=== PATIENT | female | born 1970 | race Caucasian/White ===

== ENCOUNTER 2017-11-21 16:21 | Emergency (ER) | payer BC, OTHER ==
[2017-11-21] MEDS ORDERED: Sodium Chloride 0.9% 10 ML Syringe FLUSH PRN (16:26)
[2017-11-21] MEDS ORDERED: Aspirin 81 MG Tab.Chew PO ONE (16:26)
[2017-11-21] MEDS ORDERED: Sodium Chloride 0.9% 2.5 ML Syringe FLUSH PRN (16:26)
[2017-11-21] MEDS ORDERED: Nitroglycerin 0.4 MG Tab.SL SL PRN (16:26)
--- NOTE | 2017-11-21 16:37 | EDM.PDOC ---
ED HPI GENERAL MEDICAL PROBLEM - General Chief Complaint: General Stated Complaint: CHEST PAIN Time Seen by Provider: 11/21/17 16:25 Source of Information: Reports: Patient History Limitations: Reports: No Limitations - History of Present Illness INITIAL COMMENTS - FREE TEXT/NARRATIVE: History of present illness: []Patient had an episode of chest pain 4 days ago at approximately 6 PM about 2 minutes that she described as chest heaviness that radiated to both arms followed by a flushed feeling and headache. All her symptoms were resolved within a few minutes. Patient has had 4 or 5 current episodes of the same symptoms. Her last episode was 10 PM last night. She called her primary care doctor who told her to come into the ER to be checked out. She usually has low blood pressure and she arrives with a blood pressure 148/70 which she states is very high for her. She denies any weakness in her extremities, difficulty speaking or memory loss. She does not have a history of heart disease. Patient does have HIV and she is on Genvoya. Review of systems: As per history of present illness and below otherwise all systems reviewed and negative. Past medical history: As per history of present illness and as reviewed below otherwise noncontributory. Surgical history: As per history of present illness and as reviewed below otherwise noncontributory. Social history: No reported history of drug or alcohol abuse. Family history: As per history of present illness and as reviewed below otherwise noncontributory. Physical exam: General: Well developed, well nourished in NAD HEENT: Atraumatic, normocephalic, pupils reactive, negative for conjunctival pallor or scleral icterus, mucous membranes moist, throat clear, neck supple, nontender, trachea midline. Lungs: Clear to auscultation, breath sounds equal bilaterally, chest nontender. Heart: S1S2, regular, negative for clicks, rubs, or JVD. Abdomen: Soft, nondistended, nontender. Negative for masses or hepatosplenomegaly. Negative for costovertebral tenderness. Pelvis: Stable nontender. Genitourinary: Deferred. Rectal: Deferred. Extremities: Atraumatic, negative for cords or calf pain. Neurovascular unremarkable. Neuro: Awake, alert, oriented. Cranial nerves II through XII unremarkable. Cerebellum unremarkable. Motor and sensory unremarkable throughout. Exam nonfocal. Diagnostics: []CBC normal, chemistry normal, EKG sinus rhythm at 72 without acute ischemia, chest x-ray negative, troponin negative Therapeutics: []Aspirin and nitroglycerin given for her blood pressure. Impression: []Chest pain Plan: []Follow-up with primary care for further workup. Definitive disposition and diagnosis as appropriate pending reevaluation and review of above. headache Pain Score (Numeric/FACES): 5 - Related Data Allergies Allergy/AdvReac Type Severity Reaction Status Date / Time cefdinir Allergy Rash Verified 11/21/17 16:25 erythromycin base Allergy Vomiting Verified 11/21/17 16:25 tetracycline Allergy Vomiting Verified 11/21/17 16:25 Home Meds: Home Meds Albuterol [Ventolin HFA] 18 gm INH DAILY 11/27/14 [History] Multivitamin with Minerals [Multiple Vitamin] 1 tab PO DAILY 11/27/14 [History] Elvitegr/Cobicist/Emtric/Tenof [Stribild Tablet] 1 tab PO DAILY 11/21/17 [ History] Social & Family History - Tobacco Use Smoking Status *Q: Current Every Day Smoker Years of Tobacco use: 20 Used Tobacco, but Quit: No Second Hand Smoke Exposure: No - Alcohol Use Days Per Week of Alcohol Use: 1 Number of Drinks Per Day: 2 Total Drinks Per Week: 2 - Recreational Drug Use Recreational Drug Use: No ED ROS GENERAL - Review of Systems Review Of Systems: See Below ED EXAM, GENERAL - Physical Exam Exam: See Below (See history of present illness) Course - Vital Signs Last Recorded V/S: Last Vital Signs Temp 98.5 F 11/21/17 16:26 Pulse 87 11/21/17 17:56 Resp 18 11/21/17 17:56 BP 111/69 11/21/17 17:56 Pulse Ox 97 11/21/17 17:56 - Orders/Labs/Meds Orders: Active Orders 24 hr Category Date Time Status EKG Documentation Completion [RC] STAT Care 11/21/17 16:26 Active Chest 1V Frontal [CR] Stat Exams 11/21/17 16:26 Taken Nitroglycerin [Nitrostat] Med 11/21/17 16:26 Active 0.4 mg SL Q5M PRN Sodium Chloride 0.9% [Saline Flush] Med 11/21/17 16:26 Active 10 ml FLUSH ASDIRECTED PRN Sodium Chloride 0.9% [Saline Flush] Med 11/21/17 16:26 Active 2.5 ml FLUSH ASDIRECTED PRN Saline Lock Insert [OM.PC] Stat Oth 11/21/17 16:26 Ordered Medication Orders Nitroglycerin (Nitrostat) 0.4 mg SL Q5M PRN PRN Reason: Chest Pain Last Admin: 11/21/17 16:45 Dose: 0.4 mg Sodium Chloride (Saline Flush) 10 ml FLUSH ASDIRECTED PRN PRN Reason: Keep Vein Open Sodium Chloride (Saline Flush) 2.5 ml FLUSH ASDIRECTED PRN PRN Reason: Keep Vein Open Labs: Laboratory Tests 11/21/17 11/21/17 11/21/17 Range/Units 16:40 16:40 16:40 WBC 7.24 (4.0-11.0) K/uL RBC 4.44 (4.30-5.90) M/uL Hgb 13.6 (12.0-16.0) g/dL Hct 40.3 (36.0-46.0) % MCV 90.8 (80.0-98.0) fL MCH 30.6 (27.0-32.0) pg MCHC 33.7 (31.0-37.0) g/dL RDW Std Deviation 45.1 (28.0-62.0) fl RDW Coeff of Lynn 14 (11.0-15.0) % Plt Count 210 (150-400) K/uL MPV 9.70 (7.40-12.00) fL Neut % (Auto) 64.3 (48.0-80.0) % Lymph % (Auto) 26.5 (16.0-40.0) % [place] % (Auto) 6.4 (0.0-15.0) % Eos % (Auto) 2.5 (0.0-7.0) % Baso % (Auto) 0.3 (0.0-1.5) % Neut # (Auto) 4.7 (1.4-5.7) K/uL Lymph # (Auto) 1.9 (0.6-2.4) K/uL [place] # (Auto) 0.5 (0.0-0.8) K/uL Eos # (Auto) 0.2 (0.0-0.7) K/uL Baso # (Auto) 0.0 (0.0-0.1) K/uL Nucleated RBC % 0.0 /100WBC Nucleated RBCs # 0 K/uL Lactate 1.6 (0.20-2.00) mmol/L Sodium 140 (136-145) mmol/L Potassium 3.5 (3.5-5.1) mmol/L Chloride 103 (98-107) mmol/L Carbon Dioxide 26.3 (21.0-32.0) mmol/L BUN 22 H (7.0-18.0) mg/dL Creatinine 1.0 (0.6-1.0) mg/dL Est Cr Clr Drug Dosing 69.40 mL/min Estimated GFR (MDRD) 59.2 ml/min Glucose 94 (74-106) mg/dL Calcium 9.7 (8.5-10.1) mg/dL Total Bilirubin 0.2 (0.2-1.0) mg/dL AST 23 (15-37) IU/L ALT 37 (14-63) IU/L Alkaline Phosphatase 97 (46-116) U/L Troponin I < 0.050 (0.000-0.056) ng/mL Total Protein 7.8 (6.4-8.2) g/dL Albumin 4.0 (3.4-5.0) g/dL Globulin 3.8 H (2.0-3.5) g/dL Albumin/Globulin Ratio 1.1 L (1.3-2.8) Meds: Medications Generic Name Dose Route Start Last Admin Trade Name Freq PRN Reason Stop Dose Admin Nitroglycerin 0.4 mg 11/21/17 16:26 11/21/17 16:45 Nitrostat SL 0.4 mg Q5M PRN Administration Chest Pain Sodium Chloride 10 ml 11/21/17 16:26 Saline Flush FLUSH ASDIRECTED PRN Keep Vein Open Sodium Chloride 2.5 ml 11/21/17 16:26 Saline Flush FLUSH ASDIRECTED PRN Keep Vein Open Discontinued Medications Generic Name Dose Route Start Last Admin Trade Name Freq PRN Reason Stop Dose Admin Aspirin 324 mg 11/21/17 16:26 11/21/17 16:54 Aspirin PO 11/21/17 16:27 324 mg ONETIME ONE Administration Departure - Departure Time of Disposition: 17:58 Disposition: Home, Self-Care 01 Condition: Good Clinical Impression: Chest pain Qualifiers: Chest pain type: unspecified Qualified Code(s): R07.9 - Chest pain, unspecified - Discharge Information Referrals: PCP,None [Primary Care Provider] - Forms: ED Department Discharge Additional Instructions: The following information is given to patients seen in the emergency department who are being discharged to home. This information is to outline your options for follow-up care. We provide all patients seen in our emergency department with a follow-up referral. The need for follow-up, as well as the timing and circumstances, are variable depending upon the specifics of your emergency department visit. If you don't have a primary care physician on staff, we will provide you with a referral. We always advise you to contact your personal physician following an emergency department visit to inform them of the circumstance of the visit and for follow-up with them and/or the need for any referrals to a consulting specialist. The emergency department will also refer you to a specialist when appropriate. This referral assures that you have the opportunity for follow-up care with a specialist. All of these measure are taken in an effort to provide you with optimal care, which includes your follow-up. Under all circumstances we always encourage you to contact your private physician who remains a resource for coordinating your care. When calling for follow-up care, please make the office aware that this follow-up is from your recent emergency room visit. If for any reason you are refused follow-up, please contact the [facility] Emergency Department at and asked to speak to the emergency department charge nurse. [facility] [address] [place] [id number] - My Orders Last 24 Hours: My Active Orders 11/21/17 16:26 EKG Documentation Completion [RC] STAT Chest 1V Frontal [CR] Stat Nitroglycerin [Nitrostat] 0.4 mg SL Q5M PRN Sodium Chloride 0.9% [Saline Flush] 10 ml FLUSH ASDIRECTED PRN Sodium Chloride 0.9% [Saline Flush] 2.5 ml FLUSH ASDIRECTED PRN Saline Lock Insert [OM.PC] Stat - Assessment/Plan Last 24 Hours: My Active Orders 11/21/17 16:26 EKG Documentation Completion [RC] STAT Chest 1V Frontal [CR] Stat Nitroglycerin [Nitrostat] 0.4 mg SL Q5M PRN Sodium Chloride 0.9% [Saline Flush] 10 ml FLUSH ASDIRECTED PRN Sodium Chloride 0.9% [Saline Flush] 2.5 ml FLUSH ASDIRECTED PRN Saline Lock Insert [OM.PC] Stat
[2017-11-21 17:31] LABS: CHLORIDE,CL 103 mmol/L (98-107); SODIUM,NA 140 mmol/L (136-145)
[2017-11-21 18:15] VITALS: BP 112/73
--- NOTE | 2017-11-22 10:09 | CR ---
EXAM DATE: 11/21/17 PATIENT'S AGE: 46 Patient: FARAZ BAKER Facility: [place], [place] Site . Site : [id number] Study: XRay Chest [id number]/12/2018 5:55:23 PM Ordering Physician: Doctor Driscoll Final Report: INDICATION: chest pain, paula arm pain/heaviness COMPARISON: November, Single AP view Findings: The lungs are clear. Pulmonary vascularity, mediastinum and cardiac silhouette are within normal limits. No effusions and no pneumothorax. Osseous structures appear unremarkable. Impression: No evidence of acute cardiopulmonary disease. Dictated by: Librado Hewitt MD @ 11/21/2017 18:09:55 (Electronic Signature) Report Signed by Proxy. SCAR
== END 2017-11-21 18:11 | disposition home or self-care (01) ==
LOC: MW.ED 16:21
DX: R07.89 Other chest pain (principal); F17.210 Nicotine dependence, cigarettes, uncomplicated; Z88.1 Allergy status to other antibiotic agents
CPT/HCPCS: 36415; 71045; 80053; 83605; 84484; 85025; 99285; A9270; 99284

== ENCOUNTER 2019-06-16 12:13 | Emergency (ER) | payer BC, OTHER ==
--- NOTE | 2019-06-16 12:15 | EDM.PDOC ---
ED HPI GENERAL MEDICAL PROBLEM - General Stated Complaint: check blood sugar Time Seen by Provider: 06/16/19 12:14 Source of Information: Reports: Patient History Limitations: Reports: No Limitations - History of Present Illness INITIAL COMMENTS - FREE TEXT/NARRATIVE: HISTORY AND PHYSICAL: History of present illness: Patient is a 48-year-old female presenting to the emergency room for irregular heartbeat and dizziness. Patient states while at work this morning at around 10 AM her "heart went crazy . . . and was all over the place". She also felt nauseous, SOB, had aching left shoulder pain, tight chest, tingling in fingers, arms, and hands, and a headache rated at a 4 out of 10 starting "at the back of my head and radiated to the top". She notified us that she started to monitor her pulse and it would be "fast/strong and then couldn't feel it". Patient states she currently has a "tight chest", headache, dizziness, minor tingling still in hands and fingers, and mild shoulder pain. Patient denies any fever, chills, change in vision, syncope or near syncope. Denies any chest pain, back pain, shortness of breath currently or cough. Denies any abdominal pain, vomiting, diarrhea, constipation or dysuria. Has not noted any blood in urine or stool. Patient has been eating and drinking appropriately. Review of systems: As per history of present illness and below otherwise all systems reviewed and negative. Past medical history: As per history of present illness and as reviewed below otherwise noncontributory. Surgical history: As per history of present illness and as reviewed below otherwise noncontributory. Social history: See social history for further information Family history: As per history of present illness and as reviewed below otherwise noncontributory. Physical exam: General: She is a well-nourished and well-developed 48-year-old female. Alert and orientated. Nontoxic in appearance and in no acute distress. HEENT: Atraumatic, normocephalic, pupils equal and reactive bilaterally, negative for conjunctival pallor or scleral icterus, mucous membranes moist, TMs normal bilaterally, throat clear, neck supple, nontender, trachea midline. No drooling or trismus noted. No meningeal signs. No hot potato voice noted. Lungs: Clear to auscultation, breath sounds equal bilaterally, chest nontender. Heart: S1S2, regular rate and rhythm without overt murmur Abdomen: Soft, nondistended, nontender. Negative for masses or hepatosplenomegaly. Negative for costovertebral tenderness. Skin: Intact, warm, dry. No lesions or rashes noted. Extremities: Atraumatic, moves all extremities per self without difficulty or deficits, negative for cords or calf pain. Neurovascular unremarkable. Neuro: Awake, alert, oriented. Cranial nerves II through XII unremarkable. Cerebellum unremarkable. Motor and sensory unremarkable throughout. Exam nonfocal. Notes: Patient was offered IV fluids at the time of physical examination and she declined an IV. Imagining is unremarkable. Lab work is unremarkable. I did offer the patient admission to further evaluate the cardiac complaining and follow her troponins. She declines. She denies having any chest pain just the sensation of palpitations. She states she does not want any form of IV normal to stay in the hospital. We discussed signs and symptoms that would prompt her to return to the emergency room. Supportive care measures were reviewed and discussed. Voices understanding and is agreeable to plan of care. Denies any further questions or concerns at this time. Diagnostics: CBC, CMP, troponin, CT, EKG Therapeutics: Aspirin Prescription: None Impression: Palpitations Dizziness Plan: 1. Aspirin 81mg once daily 2. Follow up with primary care provider for further evaluation and management 3. Return to the ED as needed and as discussed. Definitive disposition and diagnosis as appropriate pending reevaluation and review of above. - Related Data Allergies Allergy/AdvReac Type Severity Reaction Status Date / Time cefdinir Allergy Rash Verified 07/28/18 22:03 erythromycin base Allergy Vomiting Verified 07/28/18 22:03 Sulfa (Sulfonamide Allergy Other Verified 06/16/19 12:19 Antibiotics) tetracycline Allergy Vomiting Verified 07/28/18 22:03 Home Meds: Home Meds Albuterol [Ventolin HFA] 18 gm INH DAILY 11/27/14 [History] Multivitamin with Minerals [Multiple Vitamin] 1 tab PO DAILY 11/27/14 [History] Past Medical History HEENT History: Reports: None Cardiovascular History: Reports: None Respiratory History: Reports: None, Pneumonia, Recurrent Gastrointestinal History: Reports: None Genitourinary History: Reports: None TAPE LIBRARIAN History: Reports: None Musculoskeletal History: Reports: None Neurological History: Reports: None Psychiatric History: Reports: None Endocrine/Metabolic History: Reports: None Hematologic History: Reports: None Immunologic History: Reports: HIV Oncologic (Cancer) History: Reports: None Dermatologic History: Reports: None - Infectious Disease History Infectious Disease History: Reports: HIV-Human Immunodeficiency Virus - Past Surgical History Head Surgeries/Procedures: Reports: None HEENT Surgical History: Reports: None Cardiovascular Surgical History: Reports: None Respiratory Surgical History: Reports: None GI Surgical History: Reports: Appendectomy Female Surgical History: Reports: Cystectomy, Oophorectomy Endocrine Surgical History: Reports: None Neurological Surgical History: Reports: None Musculoskeletal Surgical History: Reports: None Oncologic Surgical History: Reports: None Dermatological Surgical History: Reports: None Social & Family History - Family History Family Medical History: Noncontributory - Caffeine Use Caffeine Use: Reports: Coffee ED ROS GENERAL - Review of Systems Review Of Systems: ROS reveals no pertinent complaints other than HPI. ED EXAM, GENERAL - Physical Exam Exam: See Below (See dictation) Course - Vital Signs Last Recorded V/S: Last Vital Signs Temp 96.9 F 06/16/19 12:16 Pulse 75 06/16/19 12:16 Resp 18 06/16/19 12:16 BP 130/82 06/16/19 12:16 Pulse Ox 96 06/16/19 12:16 - Orders/Labs/Meds Orders: Active Orders 24 hr Category Date Time Status EKG Documentation Completion [RC] STAT Care 06/16/19 12:20 Active Labs: Laboratory Tests 06/16/19 06/16/19 06/16/19 Range/Units 12:45 13:51 13:51 WBC 7.39 (4.0-11.0) K/uL RBC 4.24 L (4.30-5.90) M/uL Hgb 12.6 (12.0-16.0) g/dL Hct 38.6 (36.0-46.0) % MCV 91.0 (80.0-98.0) fL MCH 29.7 (27.0-32.0) pg MCHC 32.6 (31.0-37.0) g/dL RDW Std Deviation 44.9 (28.0-62.0) fl RDW Coeff of [place] 14 (11.0-15.0) % Plt Count 227 (150-400) K/uL MPV 9.80 (7.40-12.00) fL Neut % (Auto) 63.2 (48.0-80.0) % Lymph % (Auto) 28.3 (16.0-40.0) % [place] % (Auto) 6.2 (0.0-15.0) % Eos % (Auto) 2.0 (0.0-7.0) % Baso % (Auto) 0.3 (0.0-1.5) % Neut # (Auto) 4.7 (1.4-5.7) K/uL Lymph # (Auto) 2.1 (0.6-2.4) K/uL [place] # (Auto) 0.5 (0.0-0.8) K/uL Eos # (Auto) 0.2 (0.0-0.7) K/uL Baso # (Auto) 0.0 (0.0-0.1) K/uL Nucleated RBC % 0.0 /100WBC Nucleated RBCs # 0 K/uL Sodium 142 (136-145) mmol/L Potassium 3.7 (3.5-5.1) mmol/L Chloride 105 (98-107) mmol/L Carbon Dioxide 29.2 (21.0-32.0) mmol/L BUN 15 (7.0-18.0) mg/dL Creatinine 0.9 (0.6-1.0) mg/dL Est Cr Clr Drug Dosing 70.01 mL/min Estimated GFR (MDRD) > 60.0 ml/min Glucose 83 (74-106) mg/dL Calcium 9.3 (8.5-10.1) mg/dL Total Bilirubin 0.3 (0.2-1.0) mg/dL AST 21 (15-37) IU/L ALT 25 (14-63) IU/L Alkaline Phosphatase 97 (46-116) U/L Troponin I < 0.050 (0.000-0.056) ng/mL Total Protein 7.7 (6.4-8.2) g/dL Albumin 3.9 (3.4-5.0) g/dL Globulin 3.8 (2.6-4.0) g/dL Albumin/Globulin Ratio 1.0 (0.9-1.6) TSH 3rd Generation 0.70 (0.36-3.74) uIU/mL Urine Color YELLOW Urine Appearance CLEAR Urine pH 6.5 (5.0-8.0) Ur Specific [place] 1.010 (1.001-1.035) Urine Protein NEGATIVE (NEGATIVE) mg/dL Urine Glucose (UA) NEGATIVE (NEGATIVE) mg/dL Urine Ketones NEGATIVE (NEGATIVE) mg/dL Urine Occult Blood NEGATIVE (NEGATIVE) Urine Nitrite NEGATIVE (NEGATIVE) Urine Bilirubin NEGATIVE (NEGATIVE) Urine Urobilinogen 0.2 (<2.0) EU/dL Ur Leukocyte Esterase NEGATIVE (NEGATIVE) Meds: Medications Discontinued Medications Generic Name Dose Route Start Last Admin Trade Name Freq PRN Reason Stop Dose Admin Aspirin 324 mg 06/16/19 12:20 06/16/19 12:26 Aspirin PO 06/16/19 12:21 324 mg ONETIME ONE Administration Departure - Departure Time of Disposition: 14:31 Disposition: Home, Self-Care 01 Clinical Impression: Palpitations, Dizziness - Discharge Information Referrals: PCP,None [Primary Care Provider] - Additional Instructions: The following information is given to patients seen in the emergency department who are being discharged to home. This information is to outline your options for follow-up care. We provide all patients seen in our emergency department with a follow-up referral. The need for follow-up, as well as the timing and circumstances, are variable depending upon the specifics of your emergency department visit. If you don't have a primary care physician on staff, we will provide you with a referral. We always advise you to contact your personal physician following an emergency department visit to inform them of the circumstance of the visit and for follow-up with them and/or the need for any referrals to a consulting specialist. The emergency department will also refer you to a specialist when appropriate. This referral assures that you have the opportunity for follow-up care with a specialist. All of these measure are taken in an effort to provide you with optimal care, which includes your follow-up. Under all circumstances we always encourage you to contact your private physician who remains a resource for coordinating your care. When calling for follow-up care, please make the office aware that this follow-up is from your recent emergency room visit. If for any reason you are refused follow-up, please contact the [facility] Emergency Department at and asked to speak to the emergency department charge nurse. [facility] [address] [place] [address] [facility] [address] [place] [phone] 1. Aspirin 81mg once daily 2. Follow up with primary care provider for further evaluation and management 3. Return to the ED as needed and as discussed. - My Orders Last 24 Hours: My Active Orders 06/16/19 12:20 EKG Documentation Completion [RC] STAT - Assessment/Plan Last 24 Hours: My Active Orders 06/16/19 12:20 EKG Documentation Completion [RC] STAT
[2019-06-16] MEDS ORDERED: Aspirin 81 MG Tab.Chew PO ONE (12:20)
--- NOTE | 2019-06-16 13:01 | CR ---
Indication: Chest pain. Technique: Single AP portable view of the chest was obtained. Comparison: November 21, 2017. Findings: The heart is normal in size. The lungs are clear. No infiltrate, pleural effusion, or pneumothorax is identified. Impression: No acute cardiopulmonary process. Dictated by Eve Rose MD @ Jun 16 2019 12:59PM Signed by Dr. Eve Rose @ Jun 16 2019 1:00PM
--- NOTE | 2019-06-16 13:43 | CT ---
INDICATION: 48 year-old female. "Pressure in the head ". COMPARISON: None. TECHNIQUE: A CT volumetric acquisition was performed of the brain without IV contrast. FINDINGS: The CT images reveal a normal appearance of the cerebral ventricles and basal cisterns. There is no evidence of intracranial hemorrhage, tissue infarction or mass effect. The mastoid air cells and middle ear cavities are clear. The calvarium appears intact. There is normal aeration of the visualized paranasal sinuses. IMPRESSION: Negative head CT. Please note that all CT scans at this facility use dose modulation, iterative reconstruction, and/or weight-based dosing when appropriate to reduce radiation dose to as low as reasonably achievable. Dictated by Kunal Armijo MD @ Jun 16 2019 1:39PM Signed by Dr. Kunal Armijo @ Jun 16 2019 1:40PM
[2019-06-16 14:24] LABS: BLOOD UREA NITROGEN,BUN 15 mg/dL (7.0-18.0); CARBON DIOXIDE,CO2 29.2 mmol/L (21.0-32.0); CHLORIDE,CL 105 mmol/L (98-107); GLUCOSE RANDOM 83 mg/dL (74-106); POTASSIUM,K 3.7 mmol/L (3.5-5.1); SODIUM,NA 142 mmol/L (136-145)
[2019-06-16 16:34] VITALS: BP 128/74; PULSE 64
== END 2019-06-16 14:36 | disposition home or self-care (01) ==
LOC: MW.ED 12:13
DX: R00.2 Palpitations (principal); R42 Dizziness and giddiness; Z21 Asymptomatic human immunodeficiency virus [HIV] infection status; Z88.1 Allergy status to other antibiotic agents; Z88.2 Allergy status to sulfonamides
CPT/HCPCS: 36415; 70450; 71045; 80053; 81003; 84443; 84484; 85025; 93005; 99284; A9270; 99283

== ENCOUNTER 2020-12-31 01:28 | Emergency (ER) | payer BC, OTHER ==
[2020-12-31] MEDS ORDERED: Sodium Chloride 0.9% 2.5 ML Syringe FLUSH PRN (01:53)
[2020-12-31] MEDS ORDERED: Sodium Chloride 0.9% 10 ML Syringe FLUSH PRN (01:53)
[2020-12-31] MEDS ORDERED: Ondansetron 4 MG/2 ML SDV IVPUSH ONE (01:54)
[2020-12-31] MEDS ORDERED: fentaNYL 50 MCG/ML SDV IVPUSH ONE (01:54)
--- NOTE | 2020-12-31 01:57 | EDM.PDOC ---
ED HPI GENERAL MEDICAL PROBLEM - General Chief Complaint: Abdominal Pain Stated Complaint: STOMACH PAIN Time Seen by Provider: 12/31/20 01:45 - History of Present Illness INITIAL COMMENTS - FREE TEXT/NARRATIVE: History of present illness: Patient has pain in her right upper quadrant and epigastrium. It radiates to her anterior chest and radiates to her lower anterior abdomen. Pain started about 2 hours ago after she had gotten up to get ready to go to bed. She had some discomfort before that. In fact she has been having some body aches for a month. She is under a lot of stress. The patient is a smoker. She drove to [place] and back returning 1 week ago. She has no history of blood clots but a family history of her father having multiple blood clots in the legs. No exogenous hormones. Pain hurts worse when she moves and hurts worse when she breathes. She had a relatively heavy meal vegetables before she went to bed tonight. [] Review of systems: As per history of present illness and below otherwise all systems reviewed and negative. Past medical history: As per history of present illness and as reviewed below otherwise noncontributory. Surgical history: As per history of present illness and as reviewed below otherwise noncontributory. Social history: No reported history of drug or alcohol abuse. Family history: As per history of present illness and as reviewed below otherwise noncont ributory. Physical exam: Constitutional - well developed, well-nourished and in no acute distress HEENT - normocephalic, no evidence of trauma - external nose and mouth normal - no mass in neck and no JVD - mucosae moist EYES - full EOM, PERRL, no icterus - no evidence of inflammation, injection, or drainage Respiratory - no respiratory distress, equal bilateral expansion, lungs clear to auscultation and no abnormal lung sounds Cardiovascular - Regular Rhythm with S1 and S2 appreciated and no murmur, gallop or rub. GI -been tender in the epigastrium and somewhat so in the right upper quadrant. Abdomen soft without distension or organomegaly - normal bowel sounds - no guard or rebound Musculoskeletal no gross deformity of long bones or joints - no tenderness, swelling or edema Neurologic - Alert and oriented times four - CN II-XII grossly intact - motor sensory and coordination symmetrically normal Psychiatric - appropriate mood and affect with normal thought content Hematologic - No petechiae or purpura - mucosa appropriate color and sclera not pale - normal nail bed color and refill Integument - no rash or evidence of trauma - normal turgor Diagnostics: [] Therapeutics: [] Impression: [] Plan: [] Definitive disposition and diagnosis as appropriate pending reevaluation and review of above. abd pain Pain Score (Numeric/FACES): 6 - Related Data Allergies Allergy/AdvReac Type Severity Reaction Status Date / Time cefdinir Allergy Rash Verified 12/31/20 01:40 erythromycin base Allergy Vomiting Verified 12/31/20 01:40 Sulfa (Sulfonamide Allergy Other Verified 12/31/20 01:40 Antibiotics) tetracycline Allergy Vomiting Verified 12/31/20 01:40 Home Meds: Home Meds Albuterol [Ventolin HFA] 18 gm INH DAILY 11/27/14 [History] Multivitamin with Minerals [Multiple Vitamin] 1 tab PO DAILY 11/27/14 [History] Ondansetron [Zofran ODT] 4 mg PO Q6H PRN #10 tab.dis 12/31/20 [Rx] Past Medical History HEENT History: Reports: None Cardiovascular History: Reports: None Respiratory History: Reports: None, Pneumonia, Recurrent Gastrointestinal History: Reports: None Genitourinary History: Reports: None [employer] History: Reports: None Musculoskeletal History: Reports: None Neurological History: Reports: None Psychiatric History: Reports: None Endocrine/Metabolic History: Reports: None Hematologic History: Reports: None Immunologic History: Reports: HIV Oncologic (Cancer) History: Reports: None Dermatologic History: Reports: None - Infectious Disease History Infectious Disease History: Reports: HIV-Human Immunodeficiency Virus - Past Surgical History Head Surgeries/Procedures: Reports: None HEENT Surgical History: Reports: None Cardiovascular Surgical History: Reports: None Respiratory Surgical History: Reports: None GI Surgical History: Reports: Appendectomy Female Surgical History: Reports: Cystectomy, Oophorectomy Endocrine Surgical History: Reports: None Neurological Surgical History: Reports: None Musculoskeletal Surgical History: Reports: None Oncologic Surgical History: Reports: None Dermatological Surgical History: Reports: None Social & Family History - Family History Family Medical History: No Pertinent Family History - Caffeine Use Caffeine Use: Reports: Coffee ED ROS GENERAL - Review of Systems Review Of Systems: Comprehensive ROS is negative, except as noted in HPI. ED EXAM, GENERAL - Physical Exam Exam: See Below Free Text/Narrative:: My physical exam is in the HPI #1 Interpretation EKG Interpretation Comments: EKG sinus rhythm heart rate 75 HI 173 QT duration 417 QRS axis 37 QRS within normal limits when compared to 06/16/2019 no significant change impression no acute injury Course - Vital Signs Text/Narrative:: 3:55 AM patient improved Last Recorded V/S: Last Vital Signs Temp 36.4 C 12/31/20 01:40 Pulse 70 12/31/20 03:32 Resp 18 12/31/20 03:32 BP 106/56 L 12/31/20 03:32 Pulse Ox 96 12/31/20 03:32 - Orders/Labs/Meds Orders: Active Orders 24 hr Category Date Time Status EKG Documentation Completion [RC] AM Care 12/31/20 01:53 Active UA W/ARMANDO RFLX IF INDICATED [URIN] Stat Lab 12/31/20 01:53 Ordered Sodium Chloride 0.9% [Saline Flush] Med 12/31/20 01:53 Active 10 ml FLUSH ASDIRECTED PRN Sodium Chloride 0.9% [Saline Flush] Med 12/31/20 01:53 Active 2.5 ml FLUSH ASDIRECTED PRN Saline Lock Insert [OM.PC] Stat Oth 12/31/20 01:53 Ordered Medication Orders Sodium Chloride (Sodium Chloride 0.9% 10 Ml Syringe) 10 ml FLUSH ASDIRECTED PRN PRN Reason: Keep Vein Open Last Admin: 12/31/20 02:19 Dose: 10 ml Documented by: [id number] Sodium Chloride (Sodium Chloride 0.9% 2.5 Ml Syringe) 2.5 ml FLUSH ASDIRECTED PRN PRN Reason: Keep Vein Open Last Admin: 12/31/20 02:19 Dose: 2.5 ml Documented by: [id number] Labs: Laboratory Tests 12/31/20 12/31/20 12/31/20 Range/Units 02:11 02:11 02:11 WBC 8.84 (4.0-11.0) K/uL RBC 4.10 L (4.30-5.90) M/uL Hgb 12.5 (12.0-16.0) g/dL Hct 37.3 (36.0-46.0) % MCV 91.0 (80.0-98.0) fL MCH 30.5 (27.0-32.0) pg MCHC 33.5 (31.0-37.0) g/dL RDW Std Deviation 43.9 (28.0-62.0) fl RDW Coeff of Lynn 13 (11.0-15.0) % Plt Count 268 (150-400) K/uL MPV 9.80 (7.40-12.00) fL Neut % (Auto) 67.7 (48.0-80.0) % Lymph % (Auto) 24.5 (16.0-40.0) % Wilkinson % (Auto) 4.8 (0.0-15.0) % Eos % (Auto) 2.8 (0.0-7.0) % Baso % (Auto) 0.2 (0.0-1.5) % Neut # (Auto) 6.0 H (1.4-5.7) K/uL Lymph # (Auto) 2.2 (0.6-2.4) K/uL Wilkinson # (Auto) 0.4 (0.0-0.8) K/uL Eos # (Auto) 0.3 (0.0-0.7) K/uL Baso # (Auto) 0.0 (0.0-0.1) K/uL Nucleated RBC % 0.0 /100WBC Nucleated RBCs # 0 K/uL D-Dimer, Quantitative 0.37 (0.0-0.50) mg/L FEU Sodium 139 (136-145) mmol/L Potassium 3.5 (3.5-5.1) mmol/L Chloride 101 (98-107) mmol/L Carbon Dioxide 26.2 (21.0-32.0) mmol/L BUN 24 H (7.0-18.0) mg/dL Creatinine 0.9 (0.6-1.0) mg/dL Est Cr Clr Drug Dosing 68.45 mL/min Estimated GFR (MDRD) > 60.0 ml/min Glucose 120 H (74-106) mg/dL Calcium 9.2 (8.5-10.1) mg/dL Total Bilirubin 0.5 (0.2-1.0) mg/dL AST 20 (15-37) IU/L ALT 33 (14-63) IU/L Alkaline Phosphatase 116 (46-116) U/L Troponin I < 0.050 (0.000-0.056) ng/mL Total Protein 7.3 (6.4-8.2) g/dL Albumin 3.7 (3.4-5.0) g/dL Globulin 3.6 (2.6-4.0) g/dL Albumin/Globulin Ratio 1.0 (0.9-1.6) Lipase 92 (73-393) U/L Meds: Medications Generic Name Dose Route Start Last Admin Trade Name Freq PRN Reason Stop Dose Admin Sodium Chloride 10 ml 12/31/20 01:53 12/31/20 02:19 Sodium Chloride 0.9% 10 Ml Syringe FLUSH 10 ml ASDIRECTED PRN Administration Keep Vein Open Sodium Chloride 2.5 ml 12/31/20 01:53 12/31/20 02:19 Sodium Chloride 0.9% 2.5 Ml Syringe FLUSH 2.5 ml ASDIRECTED PRN Administration Keep Vein Open Discontinued Medications Generic Name Dose Route Start Last Admin Trade Name Freq PRN Reason Stop Dose Admin Al Hydroxide/Mg Hydroxide 15 0 ml 12/31/20 03:02 12/31/20 03:10 ml/ Lidocaine HCl 5 ml PO 12/31/20 03:03 20 each ONETIME ONE Administration Fentanyl 50 mcg 12/31/20 01:54 12/31/20 02:18 Fentanyl 50 Mcg/Ml Sdv IVPUSH 12/31/20 01:55 50 mcg ONETIME ONE Administration Pantoprazole Sodium 40 mg/ 10 mls @ 300 mls/hr 12/31/20 03:02 12/31/20 03:10 Sodium Chloride IV 12/31/20 03:03 300 mls/hr NOW ONE Administration Ondansetron HCl 4 mg 12/31/20 01:54 12/31/20 02:18 Ondansetron 4 Mg/2 Ml Sdv IVPUSH 12/31/20 01:55 4 mg ONETIME ONE Administration Departure - Departure Time of Disposition: 03:55 Disposition: Home, Self-Care 01 Condition: Good Clinical Impression: Gastritis - Discharge Information Prescriptions: Ondansetron [Zofran ODT] 4 mg PO Q6H PRN #10 tab.dis PRN Reason: Nausea Instructions: Gastritis, Adult, [id number] Referrals: Andrey Bustillos MD [Primary Care Provider] - Forms: ED Department Discharge Additional Instructions: Use Protonix or Prilosec [id number]. Carry Tums or Maalox for acute worsening. Follow-up with PMD [facility] [address] [place] [id number] [address] The following information is given to patients seen in the emergency department who are being discharged to home. This information is to outline your options for follow-up care. We provide all patients seen in our emergency department with a follow-up referral. The need for follow-up, as well as the timing and circumstances, are variable depending upon the specifics of your emergency department visit. If you don't have a primary care physician on staff, we will provide you with a referral. We always advise you to contact your personal physician following an emergency department visit to inform them of the circumstance of the visit and for follow-up with them and/or the need for any referrals to a consulting specialist. The emergency department will also refer you to a specialist when appropriate. This referral assures that you have the opportunity for follow-up care with a specialist. All of these measure are taken in an effort to provide you with optimal care, which includes your follow-up. Under all circumstances we always encourage you to contact your private physician who remains a resource for coordinating your care. When calling for follow-up care, please make the office aware that this follow-up is from your recent emergency room visit. If for any reason you are refused follow-up, please contact the [facility] Emergency Department at and asked to speak to the emergency department charge nurse. Sepsis Event Note (ED) - Evaluation Sepsis Screening Result: No Definite Risk - Focused Exam Vital Signs: Vital Signs Temp Pulse Resp BP Pulse Ox 12/31/20 03:32 70 18 106/56 L 96 12/31/20 01:40 36.4 C 73 18 100/43 L 95 - My Orders Last 24 Hours: My Active Orders 12/31/20 01:53 EKG Documentation Completion [RC] AM UA W/ARMANDO RFLX IF INDICATED [URIN] Stat Sodium Chloride 0.9% [Saline Flush] 10 ml FLUSH ASDIRECTED PRN Sodium Chloride 0.9% [Saline Flush] 2.5 ml FLUSH ASDIRECTED PRN Saline Lock Insert [OM.PC] Stat - Assessment/Plan Last 24 Hours: My Active Orders 12/31/20 01:53 EKG Documentation Completion [RC] AM UA W/ARMANDO RFLX IF INDICATED [URIN] Stat Sodium Chloride 0.9% [Saline Flush] 10 ml FLUSH ASDIRECTED PRN Sodium Chloride 0.9% [Saline Flush] 2.5 ml FLUSH ASDIRECTED PRN Saline Lock Insert [OM.PC] Stat
--- NOTE | 2020-12-31 02:25 | CR ---
INDICATION: Chest pain TECHNIQUE: Chest radiograph 1 view COMPARISON: 06/16/2019 FINDINGS: Mediastinum: The mediastinum is normal in appearance. The heart silhouette is normal in size and morphology. Lung: Small lung volumes are present with mild right basilar subsegmental atelectasis is seen. No sign of pleural effusion seen. No pneumothorax is identified. Bone and Soft tissue: Unremarkable for age. IMPRESSION: 1. Small lung volumes are present with mild right basilar subsegmental atelectasis is seen. Dictated by Eitan Potter MD @ 12/31/2020 2:25:25 AM Dictated by: Eitan Potter MD @ 12/31/2020 02:25:29 (Electronically Signed)
[2020-12-31 02:45] LABS: BLOOD UREA NITROGEN,BUN 24 mg/dL (7.0-18.0); CARBON DIOXIDE,CO2 26.2 mmol/L (21.0-32.0); CHLORIDE,CL 101 mmol/L (98-107); GLUCOSE RANDOM 120 mg/dL (74-106); LIPASE 92 U/L (73-393); POTASSIUM,K 3.5 mmol/L (3.5-5.1); SODIUM,NA 139 mmol/L (136-145)
[2020-12-31] MEDS ORDERED: Alum Hydrox/Mag Hydrox/Simeth 15 ML, Lidocaine 2% 5 ML PO ONE ×2 (03:02)
[2020-12-31] MEDS ORDERED: Pantoprazole 40 MG in Sodium Chloride 0.9% 10 ML IV ONE (03:02)
[2020-12-31 06:42] VITALS: BP 107/73; PULSE 67
== END 2020-12-31 04:16 | disposition home or self-care (01) ==
LOC: MW.ED 01:28
DX: K29.70 Gastritis, unspecified, without bleeding (principal); F17.200 Nicotine dependence, unspecified, uncomplicated; B20 Human immunodeficiency virus [HIV] disease; Z88.1 Allergy status to other antibiotic agents; Z88.2 Allergy status to sulfonamides
CPT/HCPCS: 36415; 71045; 80053; 83690; 84484; 85025; 85379; 93005; 96374; 96375; 99284; A9270; C9113; J2405; J3010; 93010

== ENCOUNTER 2021-08-02 05:44 | Emergency (ER) | payer BC ==
[2021-08-02] MEDS ORDERED: Sodium Chloride 0.9% 1,000 ML IV ONE (06:01)
[2021-08-02] MEDS ORDERED: Ketorolac 15 MG/ML SDV IVPUSH ONE (06:01)
[2021-08-02] MEDS ORDERED: Sodium Chloride 0.9% 10 ML Syringe FLUSH PRN (06:01)
[2021-08-02] MEDS ORDERED: Sodium Chloride 0.9% 2.5 ML Syringe FLUSH PRN (06:01)
--- NOTE | 2021-08-02 06:08 | EDM.PDOC ---
ED HPI GENERAL MEDICAL PROBLEM - General Chief Complaint: Respiratory Problem Stated Complaint: SOB Time Seen by Provider: 08/02/21 06:03 - History of Present Illness INITIAL COMMENTS - FREE TEXT/NARRATIVE: HISTORY AND PHYSICAL: History of present illness: This is a 50-year-old female with history significant for HIV, negative for hypertension, diabetes, liver, lung, kidney, DVT, PE, CAD, CVA who presents ER today secondary to tactile fevers, body aches, cough, congestion, sinus pressure for 4 days. Patient reports that she had her first Covid vaccination on June 30 but has not had her second shot as of yet. Patient reports that she called her primary care physician last week and she went into the office on Tuesday and had a negative Covid test. Patient denies any nausea, vomiting, diarrhea but has not decreased p.o. intake of solids over the last couple days. Patient reports that she has been pushing liquids over the last couple days. Patient denies any dysuria, frequency, urgency. Patient denies any abdominal pain or discomfort. Patient has any chest pain or discomfort. Patient has any sore throat or ear pain. Patient presented to the ED today by EMS secondary to shortness of breath. Review of systems: As per history of present illness and below otherwise all systems reviewed and negative. Past medical history: As per history of present illness and as reviewed below otherwise noncontributo ry. Surgical history: As per history of present illness and as reviewed below otherwise noncontributory. Social history: No reported history of drug abuse. Family history: As per history of present illness and as reviewed below otherwise noncontributory. Physical exam: This patient was seen and evaluated during the 2019 SARS-CoV-2 novel coronavirus pandemic period. Community viral transmission is ongoing at time of this encounter and the emergency department is operating under pandemic response procedures. Constitutional: Patient is oriented to person, place, and time. Appears well- developed and well-nourished. No distress. HEENT: Moist mucous membranes. Oropharynx clear without any exudates or erythema Head: Normocephalic and atraumatic Eyes: Right eye exhibits no discharge. Left eye exhibits no discharge. No scleral icterus. Tympanic membranes pearly villalobos bilaterally without any evidence of otitis media. Neck: Normal range of motion. No tracheal deviation present. Neck supple, no nuchal rigidity, no photophobia, no Kernig's sign or Brudzinski sign, patient does not present with signs or symptoms of be consistent with meningitis. Cardiovascular: Normal rate and regular rhythm. No murmurs gallops or rubs Pulmonary: Effort normal, no respiratory distress. Lungs are clear without any wheezing rales or rhonchi Abdominal: No distention Musculoskeletal: Normal range of motion Neurologic: Alert and oriented to person, place and time. Skin: [place], warm and dry. No rashes. Psychiatric: Normal mood and affect. Behavior is normal. Judgment and thought content normal. Nursing note and vital signs have been reviewed Diagnostics: CBC, CMP, chest x-ray, Covid, influenza a/B Chest Xray: Normal cardiac silhouette No infiltrates or effusions identified. No PTX No evidence of acute bony fracture. As interpreted by ER MD: [employer]: NSS x1 L, Toradol 15 mg IV Assessment and plan: 50-year-old female who presents ER today secondary to signs and symptoms consistent with an upper respiratory infection. Patient has diffuse body aches, tactile fevers, sinus congestion, cough. Patient has had Covid vaccination x 1. Patient is HIV positive. While in the ED, we will check basic labs including a CBC, CMP. Will obtain a chest x-ray to assess for pneumonia. Patient will have a Covid test as well as of influenza a and B test. Patient reports that she has had 1 dose of her Covid vaccination but has not had her influenza vaccination this year as of yet. Patient reports that she is HIV positive which she did not mention to us upon initial evaluation and was noted in one of the ER notes for approximately 2 years ago. Upon questioning the patient, she did report that she does have HIV and she has been compliant with her HIV meds and her viral load has been undetectable for quite some time. Patient will receive IV fluids and Toradol while awaiting her results. Patient's labs are all within normal limits. Patient's chest x-ray is unremarkable. Patient will get started on amoxicillin 500 mg 3 times daily x10 days for treatment of acute sinusitis. Definitive disposition and diagnosis as appropriate pending reevaluation and review of above. Middle Chest Pain Score (Numeric/FACES): 7 Head Pain Score (Numeric/FACES): 4 - Related Data Allergies Allergy/AdvReac Type Severity Reaction Status Date / Time cefdinir Allergy Rash Verified 08/02/21 05:46 erythromycin base Allergy Vomiting Verified 08/02/21 05:46 Sulfa (Sulfonamide Allergy Other Verified 08/02/21 05:46 Antibiotics) tetracycline Allergy Vomiting Verified 08/02/21 05:46 Home Meds: Home Meds Albuterol [Ventolin HFA] 18 gm INH DAILY 11/27/14 [History] Multivitamin with Minerals [Multiple Vitamin] 1 tab PO DAILY 11/27/14 [History] Ondansetron [Zofran ODT] 4 mg PO Q6H PRN #10 tab.dis 12/31/20 [Rx] Amoxicillin 500 mg PO TID #30 tab 08/02/21 [Rx] Ibuprofen 600 mg PO Q6HR PRN #30 tablet 08/02/21 [Rx] Ondansetron [Zofran ODT] 4 mg PO Q6H PRN #12 tab.dis 08/02/21 [Rx] Past Medical History HEENT History: Reports: None Cardiovascular History: Reports: None Respiratory History: Reports: None, Pneumonia, Recurrent Gastrointestinal History: Reports: None Genitourinary History: Reports: None [employer]ER History: Reports: None Musculoskeletal History: Reports: None Neurological History: Reports: None Psychiatric History: Reports: None Endocrine/Metabolic History: Reports: None Hematologic History: Reports: None Immunologic History: Reports: HIV Oncologic (Cancer) History: Reports: None Dermatologic History: Reports: None - Infectious Disease History Infectious Disease History: Reports: HIV-Human Immunodeficiency Virus - Past Surgical History Head Surgeries/Procedures: Reports: None HEENT Surgical History: Reports: None Cardiovascular Surgical History: Reports: None Respiratory Surgical History: Reports: None GI Surgical History: Reports: Appendectomy Female Surgical History: Reports: Cystectomy, Oophorectomy Endocrine Surgical History: Reports: None Neurological Surgical History: Reports: None Musculoskeletal Surgical History: Reports: None Oncologic Surgical History: Reports: None Dermatological Surgical History: Reports: None Social & Family History - Family History Family Medical History: No Pertinent Family History - Tobacco Use Tobacco Use Status *Q: Never Tobacco User - Caffeine Use Caffeine Use: Reports: Coffee - Recreational Drug Use Recreational Drug Use: No ED ROS GENERAL - Review of Systems Review Of Systems: See Below ED EXAM, GENERAL - Physical Exam Exam: See Below Course - Vital Signs Last Recorded V/S: Last Vital Signs Temp 97.0 F 08/02/21 05:46 Pulse 69 08/02/21 07:31 Resp 16 08/02/21 06:57 BP 101/62 08/02/21 07:31 Pulse Ox 98 08/02/21 07:31 - Orders/Labs/Meds Labs: Laboratory Tests 08/02/21 08/02/21 08/02/21 Range/Units 05:50 05:50 05:50 WBC 5.81 (4.0-11.0) K/uL RBC 4.16 L (4.30-5.90) M/uL Hgb 12.9 (12.0-16.0) g/dL Hct 38.3 (36.0-46.0) % MCV 92.1 (80.0-98.0) fL MCH 31.0 (27.0-32.0) pg MCHC 33.7 (31.0-37.0) g/dL RDW Std Deviation 44.5 (28.0-62.0) fl RDW Coeff of Lynn 13 (11.0-15.0) % Plt Count 225 (150-400) K/uL MPV 9.60 (7.40-12.00) fL Neut % (Auto) 60.1 (48.0-80.0) % Lymph % (Auto) 21.7 (16.0-40.0) % Allen % (Auto) 8.6 (0.0-15.0) % Eos % (Auto) 9.1 H (0.0-7.0) % Baso % (Auto) 0.5 (0.0-1.5) % Neut # (Auto) 3.5 (1.4-5.7) K/uL Lymph # (Auto) 1.3 (0.6-2.4) K/uL Allen # (Auto) 0.5 (0.0-0.8) K/uL Eos # (Auto) 0.5 (0.0-0.7) K/uL Baso # (Auto) 0.0 (0.0-0.1) K/uL Nucleated RBC % 0.0 /100WBC Nucleated RBCs # 0 K/uL Sodium 137 (136-145) mmol/L Potassium 4.0 (3.5-5.1) mmol/L Chloride 101 (98-107) mmol/L Carbon Dioxide 25.8 (21.0-32.0) mmol/L BUN 12 (7.0-18.0) mg/dL Creatinine 1.1 H (0.6-1.0) mg/dL Est Cr Clr Drug Dosing 58.18 mL/min Estimated GFR (MDRD) 52.2 ml/min Glucose 128 H (74-106) mg/dL Calcium 9.1 (8.5-10.1) mg/dL Total Bilirubin 0.3 (0.2-1.0) mg/dL AST 20 (15-37) IU/L ALT 27 (14-63) IU/L Alkaline Phosphatase 123 H (46-116) U/L Total Protein 7.5 (6.4-8.2) g/dL Albumin 3.4 (3.4-5.0) g/dL Globulin 4.1 H (2.6-4.0) g/dL Albumin/Globulin Ratio 0.8 L (0.9-1.6) Influenza Type A RNA NEGATIVE (NEGATIVE) Influenza Type B RNA NEGATIVE (NEGATIVE) SARS-CoV-2 RNA (RAMANA) NEGATIVE (NEGATIVE) Meds: Medications Discontinued Medications Generic Name Dose Route Start Last Admin Trade Name Freq PRN Reason Stop Dose Admin Sodium Chloride 1,000 mls @ 999 mls/hr 08/02/21 06:01 08/02/21 06:10 Normal Saline IV 08/02/21 07:01 999 mls/hr .Bolus ONE Administration Ketorolac Tromethamine 15 mg 08/02/21 06:01 08/02/21 06:10 Ketorolac 15 Mg/Ml Sdv IVPUSH 08/02/21 06:02 15 mg ONETIME ONE Administration Sodium Chloride 10 ml 08/02/21 06:01 08/02/21 06:11 Sodium Chloride 0.9% 10 Ml Syringe FLUSH 10 ml ASDIRECTED PRN Administration Keep Vein Open Sodium Chloride 2.5 ml 08/02/21 06:01 08/02/21 06:12 Sodium Chloride 0.9% 2.5 Ml Syringe FLUSH 2.5 ml ASDIRECTED PRN Administration Keep Vein Open Departure - Departure Time of Disposition: 07:30 Disposition: Home, Self-Care 01 Condition: Good Clinical Impression: Sinusitis, Cough - Discharge Information Prescriptions: Amoxicillin 500 mg PO TID #30 tab Ibuprofen 600 mg PO Q6HR PRN #30 tablet PRN Reason: Pain Ondansetron [Zofran ODT] 4 mg PO Q6H PRN #12 tab.dis PRN Reason: Nausea Instructions: Steps to Quit Smoking, [id number], Sinusitis, Adult, [id number] Referrals: PCP,None [Primary Care Provider] - Forms: ED Department Discharge Additional Instructions: You were seen and evaluated in ER today secondary to signs and symptoms consistent with an upper respiratory infection. You will get started on amoxicillin to treat you for possible sinus infection and other upper respiratory infections. Please drink plenty of fluids over the next couple days. Get plenty of rest. You will also be given a prescription for Zofran help with nausea if that should she develop while on the antibiotic. The following information is given to patients seen in the emergency department who are being discharged to home. This information is to outline your options for follow-up care. We provide all patients seen in our emergency department with a follow-up referral. The need for follow-up, as well as the timing and circumstances, are variable depending upon the specifics of your emergency department visit. If you don't have a primary care physician on staff, we will provide you with a referral. We always advise you to contact your personal physician following an emergency department visit to inform them of the circumstance of the visit and for follow-up with them and/or the need for any referrals to a consulting specialist. The emergency department will also refer you to a specialist when appropriate. This referral assures that you have the opportunity for follow-up care with a specialist. All of these measure are taken in an effort to provide you with optimal care, which includes your follow-up. Under all circumstances we always encourage you to contact your private physician who remains a resource for coordinating your care. When calling for follow-up care, please make the office aware that this follow-up is from your recent emergency room visit. If for any reason you are refused follow-up, please contact the [facility] Emergency Department at and asked to speak to the emergency department charge nurse. [facility] - Primary Care [address] [place] [id number] [facility] [address] [place] [address]
--- NOTE | 2021-08-02 06:30 | CR ---
Indication: Cough Technique: Chest 2 views Comparison: Chest x-ray 12/31/2020 Findings/Impression: Cardiovascular and mediastinum: Heart size and vasculature are normal in caliber and appearance. Mediastinum is within normal limits. Lungs and pleural spaces: Lungs are clear. No sign of infiltrate or mass. No sign of pleural effusion. No pneumothorax. Bones and soft tissues: No significant findings. Dictated by Benito Sheldon MD @ 08/02/2021 6:29:53 AM (Electronically Signed)
[2021-08-02 06:35] LABS: CARBON DIOXIDE,CO2 25.8 mmol/L (21.0-32.0)
[2021-08-02 06:55] LABS: CORONAVIRUS COVID-19 NAA NEGATIVE (NEGATIVE); INFLUENZA A NAA NEGATIVE (NEGATIVE); INFLUENZA B NAA NEGATIVE (NEGATIVE)
[2021-08-02 07:31] VITALS: BP 101/62; PULSE 69
== END 2021-08-02 07:33 | disposition home or self-care (01) ==
LOC: MW.ED 05:44
DX: J32.9 Chronic sinusitis, unspecified (principal); B20 Human immunodeficiency virus [HIV] disease; Z88.1 Allergy status to other antibiotic agents; Z88.2 Allergy status to sulfonamides; Z20.822 Contact with and (suspected) exposure to COVID-19
CPT/HCPCS: 0240U; 71046; 80053; 85025; 96374; 99284; J1885; J7030

== ENCOUNTER 2024-07-02 09:01 | Emergency (ER) | payer SELFPAY ==
[2024-07-02 09:13] VITALS: BP 103/51; PULSE 67
== END 2024-07-02 09:25 | disposition left against medical advice (07) ==
LOC: MW.ED 09:01
DX: R06.02 Shortness of breath (principal); B20 Human immunodeficiency virus [HIV] disease; Z88.1 Allergy status to other antibiotic agents; Z75.8 Other problems related to medical facilities and other health care; Z88.2 Allergy status to sulfonamides
CPT/HCPCS: 93005; 99284

== ENCOUNTER 2024-07-13 10:32 | Day surgery (SDC) | payer BC ==
[~2024-07-13 10:32] MED LIST: Albuterol 0.083% 2.5 MG/3 ML Neb Soln NEB PRN; HYDROmorphone 1 MG/ML Syringe IVPUSH PRN; Metoclopramide 10 MG/2 ML SDV IVPUSH PRN; Morphine 2 MG/ML SYRINGE IVPUSH PRN; Naloxone 0.4 MG/ML SDV IVPUSH PRN; Ondansetron 4 MG/2 ML SDV IVPUSH PRN; Phenylephrine HCl In 0.9% NaCl 1 MG/10 ML Syringe IVPUSH PRN
[2024-07-13] MEDS ORDERED: Propofol 200 MG/20 ML SDV ONE (11:09)
[2024-07-13] MEDS ORDERED: fentaNYL 100 MCG/2 ML SDV ONE (11:10)
[2024-07-13] MEDS: Lactated Ringers 1,000 ML IV SCH (11:15)
[2024-07-13] MEDS ORDERED: Ropivacaine 0.5% 5 MG/ML 30 ML SDV ONE (11:17)
[2024-07-13] MEDS ORDERED: ceFAZolin 2 GM in Sodium Chloride 0.9% 50 ML IV ONE (12:00)
[2024-07-13] MEDS ORDERED: Midazolam 1 MG/ML 2 ML SDV ONE (12:14)
[2024-07-13] MEDS ORDERED: Famotidine 20 MG/2 ML SDV ONE (12:15)
[2024-07-13] MEDS ORDERED: Ketamine HCL/NACL, ISO-OSM 50 MG/5 ML Syringe ONE (12:23)
[2024-07-13] MEDS ORDERED: Ondansetron 4 MG/2 ML SDV ONE (12:29)
[2024-07-13] MEDS ORDERED: ceFAZolin 2 GM Vial ONE (12:29)
[2024-07-13] MEDS ORDERED: Dexamethasone 4 MG/ML 5 ML MDV ONE (12:29)
[2024-07-13] MEDS ORDERED: Bupivacaine 0.25% 30 ML SDV ONE (12:44)
[2024-07-13] MEDS ORDERED: dexmedeTOMIDine HCl 200 MCG/2 ML SDV ONE (12:50)
[2024-07-13] MEDS ORDERED: HYDROmorphone 2 MG/ML Syringe ONE (12:52)
[2024-07-13] MEDS ORDERED: Ketorolac 30 MG/ML SDV ONE (13:20)
[2024-07-13] MEDS: fentaNYL 50 MCG/ML SDV IVPUSH PRN (14:06)
[2024-07-13] MEDS: Ketorolac 30 MG/ML SDV IVPUSH ONE (14:52)
[2024-07-13] MEDS: Acetaminophen/HYDROcodone 325-5 MG Tab PO ONE (15:30)
[2024-07-13 16:34] VITALS: BP 91/54; PULSE 55
[2024-07-13] MEDS: Ketorolac 30 MG/ML SDV ONE (16:45)
== END 2024-07-13 16:25 | disposition home or self-care (01) ==
LOC: MW.SDS 10:32
PROVIDERS: ATTEND Orthopaedic Surgery
DX: S82.61XA Displaced fracture of lateral malleolus of right fibula, initial encounter for closed fracture (principal); S93.431A Sprain of tibiofibular ligament of right ankle, initial encounter; F17.210 Nicotine dependence, cigarettes, uncomplicated; Z79.899 Other long term (current) drug therapy; Z88.8 Allergy status to other drugs, medicaments and biological substances; Z88.1 Allergy status to other antibiotic agents; Z88.0 Allergy status to penicillin; Z88.2 Allergy status to sulfonamides
CPT/HCPCS: 27792; 27829; 76000; A9270; J0131; J0665; J0690; J1100; J1171; J1885; J2250; J2405; J2704; J2795; J3010; J3490; J7120

== ENCOUNTER 2025-03-07 19:59 | Emergency (ER) | payer BC ==
[2025-03-07 21:08] LABS: BASOPHILS ABSOLUTE AUTO 0.05 K/uL (0.00-0.20); BASOPHILS PERCENT AUTO 0.5 % (0.0-1.0); EOSINOPHILS PERCENT AUTO 2.8 % (0.0-6.0); HEMATOCRIT 38.8 % (37.0-47.0); HEMOGLOBIN 13.1 g/dL (12.0-16.0); IMMATURE GRAN ABSOLUTE AUTO 0.02 K/uL (0.00-0.05); IMMATURE GRAN PERCENT AUTO 0.2 % (0.0-0.4); LYMPHOCYTES PERCENT AUTO 28.9 % (24.0-44.0); MEAN CORPUSCULAR HEMOGLOBIN 30.3 pg (28.0-32.0); MEAN CORPUSCULAR HGB CONC 33.8 g/dL (32.0-36.0); MEAN CORPUSCULAR VOLUME 89.6 fL (83.0-99.0); MEAN PLATELET VOLUME 9.8 fL (9.4-12.3); MONOCYTES ABSOLUTE AUTO 0.53 K/uL (0.00-0.80); MONOCYTES PERCENT AUTO 4.9 % (0.0-8.0); NEUTROPHILS ABSOLUTE AUTO 6.72 K/uL (1.80-7.70); NEUTROPHILS PERCENT AUTO 62.7 % (41.0-71.0); PLATELET COUNT,PLT 272 K/uL (150-400); RED BLOOD CELL COUNT 4.33 M/uL (4.10-5.30); WHITE BLOOD CELL COUNT,WBC 10.72 K/uL (3.9-11.3)
[2025-03-07 21:39] LABS: A/G RATIO 1.4 (0.9-1.6); ALANINE AMINOTRANSFERASE,ALT 30 IU/L (14-63); ALBUMIN 4.2 g/dL (3.4-5.0); ALKALINE PHOSPHATASE 138 U/L (46-116); ASPARTATE AMNIOTRANSFERASE,AST 19 IU/L (15-37); BILIRUBIN TOTAL 0.2 mg/dL (0.2-1.0); BLOOD UREA NITROGEN,BUN 18 mg/dL (7.0-18.0); CALCIUM 9.5 mg/dL (8.5-10.1); CARBON DIOXIDE,CO2 28.4 mmol/L (21.0-32.0); CHLORIDE,CL 103 mmol/L (98-107); EST CRCL DRUG DOSING (CG) 61.09 mL/min; GLUCOSE RANDOM 143 mg/dL (74-106); LIPASE 37 U/L (16-77); POTASSIUM,K 3.6 mmol/L (3.5-5.1); PRO B-TYPE NATRIUR PEPT,BNPPRO 34 pg/mL (0-125); PROTEIN TOTAL,TP 7.2 g/dL (6.4-8.2); SODIUM,NA 139 mmol/L (136-145)
[2025-03-07 21:48] LABS: ESTIMATED GFR 66 mL/min (>60)
[2025-03-07] MEDS: Alum Hydrox/Mag Hydrox/Simeth 15 ML, Metoclopramide 5 MG, Lidocaine 2% 5 ML PO ONE (22:19)
[2025-03-07 23:19] VITALS: BP 140/72; PULSE 74
== END 2025-03-07 23:19 | disposition home or self-care (01) ==
LOC: MW.ED 19:59
DX: R07.9 Chest pain, unspecified (principal); J45.909 Unspecified asthma, uncomplicated; Z90.49 Acquired absence of other specified parts of digestive tract; Z88.1 Allergy status to other antibiotic agents; Z88.2 Allergy status to sulfonamides; Z88.8 Allergy status to other drugs, medicaments and biological substances; Z79.51 Long term (current) use of inhaled steroids; Z79.82 Long term (current) use of aspirin; Z79.899 Other long term (current) drug therapy; Z75.3 Unavailability and inaccessibility of health-care facilities
CPT/HCPCS: 36415; 71045; 80053; 83690; 83735; 83880; 84484; 85025; 93005; 99285; A9270; 93010; 99284